=== PATIENT | male | born 1955 | race Caucasian/White ===

== ENCOUNTER 2017-11-27 05:42 | Emergency (ER) | payer BC ==
[~2017-11-27] VITALS: Ht 185.4 cm; Wt 94.3 kg
[~2017-11-27 05:42] MED LIST: ACID REDUCER 1150 MG PO; KETO10 PO; Robaxin500 MG PO; Ultram50 MG PO
[2017-11-27] MEDS ORDERED: LISI20 PO (06:00)
[2017-11-27] MEDS ORDERED: PANT40 PO (06:01)
[2017-11-27] MEDS ORDERED: AZIT250 PO (06:02)
[2017-11-27 07:02] LABS: BASOPHILS ABSOLUTE AUTO 0.09 K/mm3 (0.00-0.23); BASOPHILS PERCENT AUTO 1 % (0-2); EOSINOPHILS ABSOLUTE AUTO 0.12 K/mm3 (0.00-0.68); EOSINOPHILS PERCENT AUTO 1 % (0-6); Hematocrit 45.6 % (37.0-53.0); IMMATURE GRAN ABSOLUTE AUTO 0.03 K/mm3 (0.00-0.10); IMMATURE GRAN PERCENT AUTO 0 % (0-1); LYMPHOCYTES ABSOLUTE AUTO 1.06 K/mm3 (0.84-5.20); LYMPHOCYTES PERCENT AUTO 11 % (21-46); MONOCYTES ABSOLUTE AUTO 0.78 K/mm3 (0.16-1.47); MONOCYTES PERCENT AUTO 8 % (4-13); Mean Corpuscular HGB 31.8 pg (26.0-34.0); Mean Corpuscular HGB Conc 35.1 g/dL (31.5-36.5); Mean Corpuscular Volume 91 fL (80-100); Mean Platelet Volume 10.2 fL (9.1-12.4); NEUTROPHILS ABSOLUTE AUTO 7.83 K/mm3 (1.96-9.15); NEUTROPHILS PERCENT AUTO 79 % (41-73); Platelet Count 262 K/mm3 (150-400); RDW Coefficient Variation 12.7 % (11.7-14.2); RDW Standard Deviation 42.1 fL (35.1-46.3); Red Blood Cell Count 5.03 M/mm3 (4.30-5.90); White Blood Cell Count 9.91 K/mm3 (4.00-11.30)
[2017-11-27 07:14] LABS: Alanine Aminotransfer (ALT/SGP 20 U/L (12-78); Albumin, Blood 3.5 g/dL (3.4-5.0); Albumin/Globulin Ratio 0.7 (0.8-1.8); Alk Phos 96 U/L (50-136); Anion Gap 8 mmol/L (6-16); Aspartate Aminotrans (AST/SGOT 15 U/L (12-37); Blood Urea Nitrogen 13 mg/dL (8-24); Bun/Creatinine Ratio 12.4 (12.0-20.0); CO2, Blood 29 mmol/L (21-32); Calcium, Blood 8.8 mg/dL (8.5-10.1); Chloride, Blood 95 mmol/L (98-108); Creatinine, Blood 1.05 mg/dL (0.60-1.20); Globulin, Blood 4.7 g/dL (2.2-4.0); Glomerular Filtration Rate >60 (60-); Glucose, Blood 245 mg/dL (70-99); Potassium, Blood 4.4 mmol/L (3.5-5.5); Sodium, Blood 132 mmol/L (136-145); Total Protein, Blood 8.2 g/dL (6.4-8.2)
[2017-11-27] MEDS ORDERED: CIPR500 PO (08:31)
[2017-11-27] MEDS ORDERED: Flagyl500 MG PO (08:31)
== END 2017-11-27 09:05 | disposition home or self-care (01) ==
LOC: ER 05:42
PROVIDERS: Emergency Medicine
DX: K57.30 Diverticulosis of large intestine without perforation or abscess without bleeding (principal); J40 Bronchitis, not specified as acute or chronic; R73.9 Hyperglycemia, unspecified; F17.200 Nicotine dependence, unspecified, uncomplicated; Z79.899 Other long term (current) drug therapy
CPT/HCPCS: 71046; 74176; 80053; 83036; 83690; 85025; 96360; 99284-25; J7120

== ENCOUNTER 2018-01-25 07:57 | Emergency (ER) | payer OTHER, BC ==
[~2018-01-25] VITALS: Ht 185.4 cm; Wt 92.5 kg
[~2018-01-25 07:57] MED LIST changes: +AZIT250 PO; +CIPR500 PO; +Flagyl500 MG PO; +LISI20 PO; +PANT40 PO
[2018-01-25] MEDS ORDERED: METF500C PO (08:49)
[2018-01-25] MEDS ORDERED: Valium5 MG PO (10:24)
[2018-01-25] MEDS ORDERED: Norco 10-325 T1 EACH PO (10:24)
[2018-01-25] MEDS ORDERED: Prednisone20 MG PO (10:24)
== END 2018-01-25 10:57 | disposition home or self-care (01) ==
LOC: ER 07:57
DX: S39.012A Strain of muscle, fascia and tendon of lower back, initial encounter (principal); F17.200 Nicotine dependence, unspecified, uncomplicated; Z79.899 Other long term (current) drug therapy; Z79.84 Long term (current) use of oral hypoglycemic drugs; X50.1XXA Overexertion from prolonged static or awkward postures, initial encounter; Y99.0 Civilian activity done for income or pay
CPT/HCPCS: 72100; 96372; 99283-25; J2550; J3010

== ENCOUNTER 2018-09-13 07:31 | Day surgery (SDC) | payer BC ==
[~2018-09-13] VITALS: Ht 182.9 cm; Wt 199.8 kg
[~2018-09-13 07:31] MED LIST changes: +METF500C PO; +Norco 10-325 T1 EACH PO; +Prednisone20 MG PO; +Valium5 MG PO
--- NOTE | 2018-09-13 07:49 | NUR ---
Ambulatory in Day SurgeryPatient states colon prep results clear. History, Chart, Medications and Allergies reviewed before start of procedure.Lungs clear T/O to Auscultation. Patient confirms NPO status and agrees with scheduled surgery. Patient States Post-Procedure ride home has been arranged.
--- NOTE | 2018-09-13 08:16 | NUR ---
09/13/18 0816 Suha Huerta PATIENT DETERMINED TO BE ASA APPROPRIATE FOR PROPOFOL SEDATION PRIOR TO START OF PROCEDURE BY DR. BATRES. 3-LEAD EKG REVIEWED WITH PHYSICIAN PRIOR TO START OF PROCEDURE. PATIENT CONFIRMS NPO STATUS AND AGREES WITH SCHEDULED PROCEDURE. History, Chart, Medications and Allergies reviewed before start of procedure. MONITOR INTACT WITH CONTINUOUS PULSE OXIMETRY AND INTERMITTENT BP. O2 VIA N/C INTACT THROUGHOUT SEDATION/PROCEDURE, 3L NC.
--- NOTE | 2018-09-13 09:05 | NUR ---
Patient up to Ambulate independently. Gait steady. Discharge instructions reviewed with patient. Patient verbalizes understanding. Copy given to patient to take home. Patient States Post-Procedure ride home has been arranged. Discharged via wheelchair to private car for ride home.
== END 2018-09-13 22:36 | disposition home or self-care (01) ==
LOC: ORSCMMR 07:31 → ORD 08:30 → ORSCMMR 22:36
PROVIDERS: Internal Medicine Gastroenterology
PROC: 0DJD8ZZ Inspection of Lower Intestinal Tract, Via Natural or Artificial Opening Endoscopic (ICD-10-PCS; principal; 2018-09-13 08:30)
DX: Z12.11 Encounter for screening for malignant neoplasm of colon (principal); K57.30 Diverticulosis of large intestine without perforation or abscess without bleeding; I10 Essential (primary) hypertension; E11.9 Type 2 diabetes mellitus without complications; Z79.84 Long term (current) use of oral hypoglycemic drugs; Z79.899 Other long term (current) drug therapy; F17.210 Nicotine dependence, cigarettes, uncomplicated
CPT/HCPCS: 82947; J2704; J7120

== ENCOUNTER → 2019-04-12 | Outpatient (CLI) | payer BC ==
[2019-04-12 08:02] LABS: BASOPHILS ABSOLUTE AUTO 0.07 K/mm3 (0.00-0.23); BASOPHILS PERCENT AUTO 1 % (0-2); EOSINOPHILS ABSOLUTE AUTO 0.04 K/mm3 (0.00-0.68); EOSINOPHILS PERCENT AUTO 0 % (0-6); Hematocrit 47.4 % (37.0-53.0); Hemoglobin 16.9 g/dL (13.5-17.5); IMMATURE GRAN ABSOLUTE AUTO 0.03 K/mm3 (0.00-0.10); IMMATURE GRAN PERCENT AUTO 0 % (0-1); LYMPHOCYTES ABSOLUTE AUTO 1.16 K/mm3 (0.84-5.20); LYMPHOCYTES PERCENT AUTO 12 % (21-46); MONOCYTES ABSOLUTE AUTO 0.95 K/mm3 (0.16-1.47); MONOCYTES PERCENT AUTO 10 % (4-13); Mean Corpuscular HGB 33.6 pg (26.0-34.0); Mean Corpuscular HGB Conc 35.7 g/dL (31.5-36.5); Mean Corpuscular Volume 94 fL (80-100); Mean Platelet Volume 10.4 fL (9.1-12.4); NEUTROPHILS ABSOLUTE AUTO 7.48 K/mm3 (1.96-9.15); NEUTROPHILS PERCENT AUTO 77 % (41-73); Platelet Count 205 K/mm3 (150-400); RDW Coefficient Variation 12.7 % (11.7-14.2); RDW Standard Deviation 43.8 fL (35.1-46.3); Red Blood Cell Count 5.03 M/mm3 (4.30-5.90); White Blood Cell Count 9.73 K/mm3 (4.00-11.30)
[2019-04-12 08:33] LABS: Alanine Aminotransfer (ALT/SGP 14 U/L (12-78); Albumin, Blood 3.9 g/dL (3.4-5.0); Albumin/Globulin Ratio 0.9 (0.8-1.8); Alk Phos 77 U/L (40-126); Anion Gap 9 mmol/L (6-16); Aspartate Aminotrans (AST/SGOT 16 U/L (12-37); Bilirubin, Total 0.8 mg/dL (0.1-1.0); Blood Urea Nitrogen 13 mg/dL (8-24); CO2, Blood 28 mmol/L (21-32); Calcium, Blood 9.1 mg/dL (8.5-10.1); Chloride, Blood 98 mmol/L (98-108); Creatinine, Blood 1.08 mg/dL (0.60-1.20); Globulin, Blood 4.2 g/dL (2.2-4.0); Glomerular Filtration Rate >60 (60-); Glucose, Blood 148 mg/dL (70-99); Potassium, Blood 4.4 mmol/L (3.5-5.5); Sodium, Blood 135 mmol/L (136-145); Total Protein, Blood 8.1 g/dL (6.4-8.2)
== END | disposition home or self-care (01) ==
LOC: LAB SHORT 07:55 → LAB EV 07:55
PROVIDERS: Physician Assistant
DX: R10.32 Left lower quadrant pain (principal)
CPT/HCPCS: 80053; 83690; 85025

== ENCOUNTER 2019-12-22 16:09 | Inpatient (IN) | payer BC ==
[~2019-12-22] VITALS: Ht 185.4 cm; Wt 88.8 kg
[~2019-12-22 16:09] MED LIST changes: +Aspir 8181 MG PO; +TRAM50 PO
[2019-12-28 05:08] LABS: BASOPHILS ABSOLUTE AUTO 0.04 K/mm3 (0.00-0.23); BASOPHILS PERCENT AUTO 0 % (0-2); EOSINOPHILS ABSOLUTE AUTO 0.04 K/mm3 (0.00-0.68); EOSINOPHILS PERCENT AUTO 0 % (0-6); Hemoglobin 15.5 g/dL (13.5-17.5); IMMATURE GRAN ABSOLUTE AUTO 0.02 K/mm3 (0.00-0.10); IMMATURE GRAN PERCENT AUTO 0 % (0-1); LYMPHOCYTES ABSOLUTE AUTO 1.45 K/mm3 (0.84-5.20); LYMPHOCYTES PERCENT AUTO 14 % (21-46); MONOCYTES PERCENT AUTO 9 % (4-13); Mean Corpuscular HGB 33.2 pg (26.0-34.0); Mean Corpuscular HGB Conc 34.4 g/dL (31.5-36.5); Mean Corpuscular Volume 96 fL (80-100); Mean Platelet Volume 10.1 fL (9.1-12.4); NEUTROPHILS ABSOLUTE AUTO 8.06 K/mm3 (1.96-9.15); NEUTROPHILS PERCENT AUTO 76 % (41-73); Platelet Count 196 K/mm3 (150-400); RDW Coefficient Variation 13.2 % (11.7-14.2); RDW Standard Deviation 46.9 fL (35.1-46.3); Red Blood Cell Count 4.67 M/mm3 (4.30-5.90); White Blood Cell Count 10.61 K/mm3 (4.00-11.30)
[2019-12-28 05:28] LABS: Anion Gap 3 mmol/L (6-16); Blood Urea Nitrogen 11 mg/dL (8-24); Bun/Creatinine Ratio 10.5 (12.0-20.0); CO2, Blood 31 mmol/L (21-32); Calcium, Blood 8.1 mg/dL (8.5-10.1); Chloride, Blood 103 mmol/L (98-108); Creatinine, Blood 1.05 mg/dL (0.60-1.20); Glomerular Filtration Rate >60 (60-); Glucose, Blood 132 mg/dL (70-99); Potassium, Blood 4.3 mmol/L (3.5-5.5); Sodium, Blood 137 mmol/L (136-145)
[2020-01-01] MEDS ORDERED: Norco 5-325 Ta1 EACH PO (09:56)
== END 2020-01-01 10:20 | disposition home or self-care (01) | DRG 331 ==
LOC: SURS 12-27 06:02 → PRE IP 12-27 07:30 → SURS 12-27 12:01
PROVIDERS: ADMIT Surgery
PROC: 0DBN0ZZ Excision of Sigmoid Colon, Open Approach (ICD-10-PCS; principal; 2019-12-28)
DX: K57.32 Diverticulitis of large intestine without perforation or abscess without bleeding (principal); E11.9 Type 2 diabetes mellitus without complications; I10 Essential (primary) hypertension; F17.210 Nicotine dependence, cigarettes, uncomplicated; K21.9 Gastro-esophageal reflux disease without esophagitis
CPT/HCPCS: 36415; 80048; 82947; 85025; 88307; A9270-GY; J0295; J1100; J1650; J1885; J2250; J2405; J2704; J2765; J3010; J7120; V2790

== ENCOUNTER 2020-01-06 14:31 | Inpatient (IN) | payer BC ==
[~2020-01-06] VITALS: Ht 185.4 cm; Wt 88.5 kg
[~2020-01-06 14:31] MED LIST changes: +Norco 5-325 Ta1 EACH PO
[2020-01-06 14:58] LABS: BASOPHILS ABSOLUTE AUTO 0.02 K/mm3 (0.00-0.23); BASOPHILS PERCENT AUTO 0 % (0-2); EOSINOPHILS ABSOLUTE AUTO 0.15 K/mm3 (0.00-0.68); EOSINOPHILS PERCENT AUTO 2 % (0-6); Hematocrit 46.9 % (37.0-53.0); Hemoglobin 15.8 g/dL (13.5-17.5); IMMATURE GRAN ABSOLUTE AUTO 0.02 K/mm3 (0.00-0.10); IMMATURE GRAN PERCENT AUTO 0 % (0-1); LYMPHOCYTES ABSOLUTE AUTO 0.92 K/mm3 (0.84-5.20); LYMPHOCYTES PERCENT AUTO 15 % (21-46); MONOCYTES ABSOLUTE AUTO 0.25 K/mm3 (0.16-1.47); MONOCYTES PERCENT AUTO 4 % (4-13); Mean Corpuscular HGB 32.8 pg (26.0-34.0); Mean Corpuscular HGB Conc 33.7 g/dL (31.5-36.5); Mean Corpuscular Volume 97 fL (80-100); Mean Platelet Volume 9.9 fL (9.1-12.4); NEUTROPHILS ABSOLUTE AUTO 4.94 K/mm3 (1.96-9.15); NEUTROPHILS PERCENT AUTO 78 % (41-73); Platelet Count 395 K/mm3 (150-400); RDW Coefficient Variation 13.2 % (11.7-14.2); RDW Standard Deviation 47.1 fL (35.1-46.3); Red Blood Cell Count 4.82 M/mm3 (4.30-5.90)
[2020-01-06 15:15] LABS: Alanine Aminotransfer (ALT/SGP 47 U/L (12-78); Albumin, Blood 3.7 g/dL (3.4-5.0); Albumin/Globulin Ratio 0.9 (0.8-1.8); Alk Phos 70 U/L (50-136); Anion Gap 6 mmol/L (6-16); Aspartate Aminotrans (AST/SGOT 16 U/L (12-37); Bilirubin, Total 0.4 mg/dL (0.1-1.0); Blood Urea Nitrogen 13 mg/dL (8-24); Bun/Creatinine Ratio 11.7 (12.0-20.0); CO2, Blood 31 mmol/L (21-32); Calcium, Blood 9.1 mg/dL (8.5-10.1); Chloride, Blood 101 mmol/L (98-108); Creatinine, Blood 1.11 mg/dL (0.60-1.20); Globulin, Blood 3.9 g/dL (2.2-4.0); Glomerular Filtration Rate >60 (60-); Glucose, Blood 121 mg/dL (70-99); Potassium, Blood 4.2 mmol/L (3.5-5.5); Sodium, Blood 138 mmol/L (136-145); Total Protein, Blood 7.6 g/dL (6.4-8.2)
[2020-01-06] MEDS ORDERED: TRAM50 PO (19:54)
--- NOTE | 2020-01-06 23:46 | NUR ---
ICU RECOVERY PT TO ICU [address] SCHERER AND TOBY MAKER @ 1636 FOR SURGICAL RECOVERY. PT ON RA, VSS, AROUSES TO VERBAL STIMULI, ORIENTED TO SELF AND FOLLOWING DIRECTIONS. PT MOVES ALL EXTREMETIES. REPORT FROM OR STS PT HAD A LOOP ILEOSTOMY WITH WASHOUT, EBL LESS THAN 100ml, PT RECEIVED 1200ml FLUIDS. PT O2 SATURATIONS DECREASED TO 89%, PLACED ON 15L PER NRB, PT STARTED TO BECOME MORE AROUSABLE AND ORIENTED TO SELF, EVENT, LOCATION, AND FOLLOWING DIRECTIONS. PT REPORTS 10/10 PAIN TO ILEOSTOMY SURGICAL SITE, MEDICATED WITH FENTANYL 50mcg x6 WITH SOME RELEIF, DENIES NAUSEA. PT ASKING QUESTION ABOUT HIS OSTOMY, REGARDING CARE OF SITE AND LENGTH OF TIME OSTOMY WILL BE NECESSARY. ASSURED PT THAT HE AND FAMILY WOULD BE EDUCATED REGARDING CARE PRIOR TO DISCHARGE, AND PROVIDED BREIF EXPLANATION OF SITE CARE AND USE OF OSTOMY BAG. WOUND VAC TO MID ABD, C/D/I. GYPSY TO LLQ WITH BLOODY DRAINAGE. TORRE IN PLACE AND DRAINING DARK YELLOW URINE. PT PLACED ON 4L PER NC @ 2311 AND REPORT CALLED TO RORY WHITT. PT TRANSFERED TO ROOM 209 @ 4266.
[2020-01-07] MEDS ORDERED: Norco 5-325 Ta1 EACH PO (00:13)
[2020-01-07 04:20] LABS: BASOPHILS ABSOLUTE AUTO 0.07 K/mm3 (0.00-0.23); BASOPHILS PERCENT AUTO 0 % (0-2); EOSINOPHILS PERCENT AUTO 0 % (0-6); Hematocrit 47.1 % (37.0-53.0); IMMATURE GRAN ABSOLUTE AUTO 0.08 K/mm3 (0.00-0.10); IMMATURE GRAN PERCENT AUTO 0 % (0-1); LYMPHOCYTES ABSOLUTE AUTO 0.52 K/mm3 (0.84-5.20); LYMPHOCYTES PERCENT AUTO 3 % (21-46); MONOCYTES ABSOLUTE AUTO 0.67 K/mm3 (0.16-1.47); MONOCYTES PERCENT AUTO 4 % (4-13); Mean Corpuscular HGB 33.1 pg (26.0-34.0); Mean Corpuscular Volume 98 fL (80-100); NEUTROPHILS ABSOLUTE AUTO 17.17 K/mm3 (1.96-9.15); NEUTROPHILS PERCENT AUTO 93 % (41-73); Platelet Count 323 K/mm3 (150-400); RDW Coefficient Variation 13.4 % (11.7-14.2); Red Blood Cell Count 4.83 M/mm3 (4.30-5.90); White Blood Cell Count 18.51 K/mm3 (4.00-11.30)
[2020-01-07 04:40] LABS: Anion Gap 6 mmol/L (6-16); Blood Urea Nitrogen 13 mg/dL (8-24); CO2, Blood 27 mmol/L (21-32); Chloride, Blood 102 mmol/L (98-108); Glomerular Filtration Rate >60 (60-); Glucose, Blood 226 mg/dL (70-99); Potassium, Blood 4.7 mmol/L (3.5-5.5); Sodium, Blood 135 mmol/L (136-145)
--- NOTE | 2020-01-07 05:07 | NUR ---
SHIFT SUMMARY POD#1 LOOP ILEOSTOMY WITH WASH OUT. AAOX4. DISCOMFORT DECREASED WITH 50mcg FENTANYL Q2H. NO NAUSEA/EMESIS. INCREASED DISCOMFORT THIS AM, NOTIFIED AND NEW ORDERS RECEIVED. ABD INCISION WITH NICHOLE DRESSING C/D/I. OSTOMY SECURE WITH SCANT SS DRAINAGE. GYPSY SECURE WITH 70cc SS DRAINAGE. PT RESTING IN SHORT NAPS. PT ORIENTED TO ROOM + DEMONSTRATED CALL LIGHT USE.
--- NOTE | 2020-01-07 10:15 | NUR ---
DR EDWARDS RECENTLY HERE TO SEE PT. DISCUSSED STARTING DILAUDID NOW. FAMILY HERE. DISCUSSED LOVENOX ORDER.
--- NOTE | 2020-01-07 10:36 | NUR ---
PT REPORTS THIS PAIN MEDICATION WORKING BETTER. FAMILY AGREES THAT PT APPEARS MORE COMFORTABLE.
--- NOTE | 2020-01-07 13:00 | NUR ---
PT REPORTS PAIN DOING MUCH BETTER. PT ENC TO BE REPOSITIONED/UP TO CHAIR. PT REPORTS MOVING IN BED BY SELF AND WISHES TO TAKE A NAP. PT HAS FLY FRAME TENDER BUTTON AND CALL LIGHT. FAMILY BEEN IN/OUT OF ROOM.
--- NOTE | 2020-01-07 16:01 | NUR ---
SHIFT SUMMARY PT HAD DIFFICULTY EARLY THIS AM WITH PAIN CONTROL. PT PLACED ON DILAUDID CEMENT RAILROAD CAR LOADER WHICH PT REPORTS WORKING BETTER FOR HIM. PT UP TO CHAIR THIS AFTERNOON. PT BEEN ASSISTED WITH ADL'S PRN. FAMILY IN/OUT OF ROOM.
--- NOTE | 2020-01-08 04:43 | NUR ---
SHIFT SUMMARY POD#2. AAOX4. DISCOMFORT CONTROLLED WITH DILAUDID BACK HOE MACHINE OPERATOR. NO NAUSEA/EMESIS. NICHOLE DRESSING TO ABD C/D/I. GYPSY SECURE WITH 140cc SS OUT. OSTOMY WITH 200cc CLEAR/PINK OUT. PT RESTED WELL T/O NIGHT. PT RESTING AT THIS TIME WITH CALL LIGHT IN REACH.
[2020-01-08 04:50] LABS: BASOPHILS ABSOLUTE AUTO 0.04 K/mm3 (0.00-0.23); BASOPHILS PERCENT AUTO 0 % (0-2); EOSINOPHILS ABSOLUTE AUTO 0.33 K/mm3 (0.00-0.68); EOSINOPHILS PERCENT AUTO 3 % (0-6); Hematocrit 43.7 % (37.0-53.0); Hemoglobin 14.2 g/dL (13.5-17.5); IMMATURE GRAN ABSOLUTE AUTO 0.05 K/mm3 (0.00-0.10); IMMATURE GRAN PERCENT AUTO 0 % (0-1); LYMPHOCYTES ABSOLUTE AUTO 0.79 K/mm3 (0.84-5.20); LYMPHOCYTES PERCENT AUTO 6 % (21-46); MONOCYTES ABSOLUTE AUTO 0.69 K/mm3 (0.16-1.47); MONOCYTES PERCENT AUTO 6 % (4-13); Mean Corpuscular HGB 32.2 pg (26.0-34.0); Mean Corpuscular HGB Conc 32.5 g/dL (31.5-36.5); Mean Corpuscular Volume 99 fL (80-100); NEUTROPHILS ABSOLUTE AUTO 10.62 K/mm3 (1.96-9.15); NEUTROPHILS PERCENT AUTO 85 % (41-73); Platelet Count 298 K/mm3 (150-400); RDW Coefficient Variation 13.3 % (11.7-14.2); RDW Standard Deviation 48.7 fL (35.1-46.3); Red Blood Cell Count 4.41 M/mm3 (4.30-5.90); White Blood Cell Count 12.52 K/mm3 (4.00-11.30)
[2020-01-08 05:09] LABS: Anion Gap 4 mmol/L (6-16); Blood Urea Nitrogen 12 mg/dL (8-24); Bun/Creatinine Ratio 13.3 (12.0-20.0); CO2, Blood 26 mmol/L (21-32); Calcium, Blood 8.9 mg/dL (8.5-10.1); Chloride, Blood 105 mmol/L (98-108); Creatinine, Blood 0.91 mg/dL (0.60-1.20); Glomerular Filtration Rate >60 (60-); Glucose, Blood 102 mg/dL (70-99); Magnesium, Blood 2.3 mg/dL (1.6-2.4); Phosphorus, Blood 2.9 mg/dL (2.5-4.9); Potassium, Blood 4.3 mmol/L (3.5-5.5); Sodium, Blood 135 mmol/L (136-145)
--- NOTE | 2020-01-08 08:17 | NUR ---
PT REPORTS TORDOL HELPING ALREADY.
--- NOTE | 2020-01-08 10:50 | NUR ---
PT REPORTS PAIN DOING MUCH BETTER, PT TORRE OUT. PT ASSISTED WITH WALK IN HALLWAY THEN BACK TO CHAIR. PT FAMILY IN ROOM BEFORE TAKING TORRE OUT. PT TOLERATED WELL.
--- NOTE | 2020-01-08 11:52 | NUR ---
DISCUSSED PT'S STATUS WITH DR EDWARDS. NO NEW ORDERS AT THIS TIME.
--- NOTE | 2020-01-08 15:34 | NUR ---
SHIFT SUMMARY PT BEEN ASSISTED WITH ADL'S PRN. PT BEEN MED PRN FOR PAIN. PT USING BATTERY CONTAINER INSPECTOR FOR PAIN. PT REPORTS PAIN MUCH BETTER AFTER HAVING TORDOL AND HAVING SO MUCH COME OUT OF GYPSY DRAIN. PT BEEN INSTRUCTED ON GYPSY DRAIN, EMPTYING AND SUCTION. PT BEEN UP TO CHAIR AND AMBULATED IN HALLWAY [facility] TODAY.
--- NOTE | 2020-01-08 15:47 | NUR ---
OTHER RN I.O. GIVEN REPORT AND IS ASSUMING CARE AT THIS TIME.
--- NOTE | 2020-01-08 19:38 | NUR ---
WILL BE DONE SOON.PATIENT STATED HE WILL TRY AGAIN TO VOID
--- NOTE | 2020-01-09 05:11 | NUR ---
POD#3 LOOP ILEOSTOMY WITH WASH OUT. AAOX4. DISCOMFORT CONTROLLED WITH DILAUDID SOLVENT PLANT TREATER + TORADOL IV Q6H. NO NAUSEA/EMESIS. ABD INCISION WITH NICHOLE C/D/I. GYPSY SECURE WITH LARGE AMOUNTS OF SS OUT. OSTOMY WITH MODERATE AMOUNT OF PINK OUT. GOOD INTAKE + URINE OUTPUT. IVF PER ORDERS. PT RESTED WELL T/O MOST OF NIGHT. CURRENTLY RESTING IN BED WITH CALL LIGHT IN REACH.
--- NOTE | 2020-01-09 13:04 | NUR ---
PAIN MANAGEMENT PT HAS BEEN USING DILAUDID CUSTOMER QUALITY SPECIALIST TO HELP MANAGE HIS PAIN. HE IS NOT HAVING EVEN PAIN MANAGEMENT, ESPECIALLY WHEN HE FALLS ASLEEP. PERCOCET STARTED TO HELP WITH PAIN MANAGEMENT.
--- NOTE | 2020-01-09 18:20 | NUR ---
SHIFT SUMMARY PT IS POD#3 FROM A ABD WASHOUT AND LOOP ILEOSTOMY. PT HAS BEEN A SBA WHEN AMBULATING, FAMILY HAS ASSISTED PT TO AMBULATE. PT IS USING THE WALKER FOR AMBULATION. PT'S ABD REMAINS DISTENDED WITH MINIMAL OSTOMY OUTPUT. PT REPORTS CRAMPING PAIN IN HIS ABD, ALTHOUGH FLATUS HAS NOT BEEN OBSERVED AT THIS TIME. GYPSY DRAIN REMAINS IN PLACE AND IS DRAINING LARGE AMOUNTS SEROSANGUINOUS DRAINAGE. PT IS NO LONGER USING HIS SPRING MAKER, HE IS TAKING PO PAIN MEDICATION AND TORADOL. PT WAS ADVANCED TO FULL LIQUID DIET TODAY; HE APPEARS TO BE TOLERATING THE DIET EXCEPT FOR SOME INCREASED CRAMPING. VSS. WILL MONITOR UNTIL REPORT TO ONCOMING RN.
--- NOTE | 2020-01-09 22:18 | NUR ---
PAIN/BRUISE: DISCUSSED BRUISING TO RIGHT ABD/ABOVE HR HIP AND PT REPORTS OF INC PAIN TO THIS AFTERNOON W/ONCALL SURGEON DR COATS. NO CHANGES SINCE BEGINNING OF SHIFT. NEW ORDER FOR ICE CHIPS AND SIPS OF WATER ONLY UNTIL DR EDWARDS ROUNDS.
[2020-01-10 05:36] LABS: BASOPHILS ABSOLUTE AUTO 0.03 K/mm3 (0.00-0.23); BASOPHILS PERCENT AUTO 0 % (0-2); EOSINOPHILS ABSOLUTE AUTO 0.32 K/mm3 (0.00-0.68); EOSINOPHILS PERCENT AUTO 4 % (0-6); Hematocrit 41.5 % (37.0-53.0); Hemoglobin 14.1 g/dL (13.5-17.5); IMMATURE GRAN ABSOLUTE AUTO 0.03 K/mm3 (0.00-0.10); IMMATURE GRAN PERCENT AUTO 0 % (0-1); LYMPHOCYTES ABSOLUTE AUTO 0.63 K/mm3 (0.84-5.20); LYMPHOCYTES PERCENT AUTO 9 % (21-46); MONOCYTES ABSOLUTE AUTO 0.63 K/mm3 (0.16-1.47); MONOCYTES PERCENT AUTO 9 % (4-13); Mean Corpuscular HGB 32.4 pg (26.0-34.0); Mean Corpuscular Volume 95 fL (80-100); Mean Platelet Volume 9.5 fL (9.1-12.4); NEUTROPHILS ABSOLUTE AUTO 5.74 K/mm3 (1.96-9.15); NEUTROPHILS PERCENT AUTO 78 % (41-73); Platelet Count 406 K/mm3 (150-400); RDW Standard Deviation 45.7 fL (35.1-46.3); Red Blood Cell Count 4.35 M/mm3 (4.30-5.90); White Blood Cell Count 7.38 K/mm3 (4.00-11.30)
[2020-01-10 06:02] LABS: Anion Gap 7 mmol/L (6-16); Blood Urea Nitrogen 10 mg/dL (8-24); Bun/Creatinine Ratio 10.6 (12.0-20.0); CO2, Blood 23 mmol/L (21-32); Calcium, Blood 8.3 mg/dL (8.5-10.1); Chloride, Blood 107 mmol/L (98-108); Creatinine, Blood 0.94 mg/dL (0.60-1.20); Glomerular Filtration Rate >60 (60-); Glucose, Blood 136 mg/dL (70-99); Magnesium, Blood 2.1 mg/dL (1.6-2.4); Phosphorus, Blood 3.6 mg/dL (2.5-4.9); Sodium, Blood 137 mmol/L (136-145)
--- NOTE | 2020-01-10 06:41 | NUR ---
POD 4 S/P COLECTOMY+ILEOSTOMY. PT VSS T/O NIGHT. NO DRNG NOTED TO DRESSING. GYPSY PUTTING OUT LARGE AMTS LIGHT SS DRNG; DRAINED APPX 650 THIS SHIFT. PT CONT TO C/O MID-RIGHT ABD PAIN. BRUISING TO RLQ/HIP AREA IS SOMEWHAT DARKER THIS AM, NO CHANGE IN SIZE, PT REP PAIN W/PALP WHILE LAYING FLAT, DENIES WHEN STANDING. ABD FIRM/MOD DISTENDED, BT ACTIVE, OSTOMY PUTTING OUT SMALL AMT LIQ STOOL, NO FLATUS. PT NPO X SIPS/CHIPS, DENIED N/V. PT AMB INDEP IN HALLS, MANUELA WELL. PT USING CALL LIGHT FOR ASSISTANCE, WILL CONT TO MONITOR UNTIL REP GIVEN TO ONCOMING RN.
--- NOTE | 2020-01-10 11:29 | NUR ---
Pt. is sitting in a chair and her nurse in the room attending ton her needs ,offered prayers for the pt.
--- NOTE | 2020-01-10 12:05 | NUR ---
OSTOMY APPLIANCE CHANGED. PT EDUCATED ABOUT OSTOMY APPLIANCE IT WAS CHANGED. PT WAS UNABLE TO SEE THE SITE BUT WAS SHOWN PRODUCTS AND EDUCATED ABOUT THEM. GYPSY GUAZE SPONGES, AND MIDLINE DRESSING CHANGED.
--- NOTE | 2020-01-10 19:50 | NUR ---
SHIFT SUMMARY PAIN HAS BEEN MANAGED WITH RUBBER COMPOUNDER MIXER AND TORADOL. PT DID NOT FEEL THAT PERCOCET MANAGED HIS PAIN EFFECTIVELY. PT HAS BEEN AMBULATING IN THE HALWAY INDEPEDENTLY. PT HAS HAD FULL LIQUIDS TODAY, HIS PAIN INCREASES AFTER EATING. PT HAS HAD MINIMAL OSTOMY OUTPUT TODAY AND IS NOT PASSING FLATUS. OSTOMY APPLIANCE AND MIDLINE DRESSING WERE CHANGED TODAY, PT TOLERATED WELL. PT HAS BEEN AMBULATING IN THE HALWAYS WITH HIS . VSS. REPORT GIVEN TO MARIA DOLORES WHITT.
--- NOTE | 2020-01-11 04:46 | NUR ---
SHIFT SUMMARY POD5 PERFORATION, VSS, A/O X4. MODERATE DISTENTION IN ABD W/ TENDERNESS ON PALPATION, PAIN CONTROLLED PER EMAR & CONTINUOUS MINER OPERATOR HELPER. PT AMBULATES INDEPENDENTLY PERIODICALLY IN HALLWAY, USES CALL LIGHT APPROPRIATELY. MINIMAL OUTPUT IN OSTOMY W/ LIQUID STOOL PRESENT. SURGICAL DRESSINGS ARE CDI, GYPSY DRAINING LARGE AMOUNTS OF CLEAR YELLOW FLUID, 430 ML DURING SHIFT. WILL CONTINUE TO ASSESS DRAINAGE AND REPORT TO ONCOMING DAY RN.
--- NOTE | 2020-01-11 05:35 | NUR ---
POD 5 S/P EXP LAP/ILEOSTOMY. ABD FIRM, DOES APPEAR MORE BLOATED AND DISTENDED THIS AM. PT REMAINS PAINFUL; PAIN MGD W/TORADOL AND HYDROMETEOROLOGY TEACHER. PO INTAKE MINIMAL, SIPS OF WATER ONLY, PT HAD NO N/V. NO SIG DRNG FROM OSTOMY; SMALL AMT CLEAR LIQ BROWN DRNG, NO GAS. GYPSY CONT TO DRAIN LARGE AMTS CLEAR YELLOW FLUID. PT AMB INDEP IN HALLS. PT VERBALIZED FEELING DISCOURAGED R/T SLOW PROGRESSION. SUPPORT AND EDUCATION PRN T/O NIGHT.
--- NOTE | 2020-01-11 13:41 | NUR ---
Met pt. lying in bed resting , pt. reports to be doing fine encouraged pt. offered prayers.
--- NOTE | 2020-01-11 15:11 | NUR ---
1430 PT REPORTS ABD PAIN 03/03 AND THAT ABD SEEMS A LITTLE FIRMER NOW THAN THIS AM. PT BELCHING AT TIMES, STATES HE HAS NOT PASSED FLATUS. DR EDWARDS NOTIFIED OF PTS INCREASED PAIN
--- NOTE | 2020-01-11 15:33 | NUR ---
SPOKE WITH DR EDWARDS REGARDING PATIENTS PAIN AND THAT PT STATES HE IS NOT PASSSING FLATUS. NO NEW ORDERS
--- NOTE | 2020-01-11 17:36 | NUR ---
SUMMARY PATIENT REPORTS ABDOMINAL PAIN 6-03/03 ABD FIRM WITH HYPO BS. PT STATES HE DID "BURP" HIS OSTOMY X1. NICHOLE NOT MAINTAINING SUCTION AND DR EDWARDS AWARE OF THIS. GYPSY WITH SEROUS DRAINAGE. PT AMBULATED IN HALLWAYS X4. PT TAKING ONLY SMALL AMOUNTS OF CLEAR LIQUIDS
--- NOTE | 2020-01-12 04:58 | NUR ---
POD 6 S/P EXP LAP WITH LOOP ILEOSTOMY. PT WAS HAVING SOME PAIN CONTROL ISSUES AT BEGINNING OF SHIFT, DID IMPROVE WITH PO PERCOCET. PT RECEIVED ANOTHER DOSE OF PERCOCET AT 0035 AND SLEPT WELL. BUT WHEN PT WOKE UP THIS AM HE VOMITED A VERY SMALL AMT OF GREEN EMESIS. STATES NEVER FELT NAUSEOUS. PT THINKS THE VOMITING IS R/T THE PERCOCET. ABD SEEMS SLIGHTLY MORE DISTENDED AND FIRM. NO FLATUS IN OSTOMY AND ONLY SCANT AMTS OF SS FLUID. PT DOES STATE PAIN IS MUCH BETTER THIS MORNING AND DENIES NAUSEA. GYPSY PUT OUT 440ML THIS SHIFT OF YELLOW FLUID. PT ONLY TOOK SIPS OF WATER DURING NIGHT. CALL LIGHT IN REACH.
--- NOTE | 2020-01-12 15:22 | NUR ---
SHIFT SUMMARY PATIENT ALERT, ORIENTED, AND INDEPENDENT IN THE ROOM THIS SHIFT. PATIENT NAUSEOUS THROUGHOUT THIS SHIFT. PATIENT UP FOR A WALK TWO TIMES THIS SHIFT. PATIENT TO CT TO IDENTIFY CAUSE OF LACK OF OSTOMY OUTPUT. PATIENT HAS HAD FAMILY IN THE ROOM THROUGH MOST OF THIS SHIFT. PATIENT REMAINS ON COMMUNITY ADVOCATE PUMP. PATIENT STARTED ON CLINIMIX THIS SHIFT. PATIENT CURRENTLY SITTING UP IN BED.
--- NOTE | 2020-01-12 19:29 | NUR ---
SHIFT SUMMARY ASSUMED CARE OF PT AT APROX 1530. PT HAS DONE WELL, USING VAULT ATTENDANT FOR PAIN MGMT AND IV TORADOL ONCE BY THIS RN. PT REPORTS PAIN 5/[address] RESULTS OF [address] SCAN GIVEN BY JON WHITT. PT ENCOURAGED TO AMBULATE.
--- NOTE | 2020-01-13 03:19 | NUR ---
PASSING FLATUS OSTOMY IS NOW PRODUCING FLATUS. PT UP AMBULATING HALLS AGAIN.
[2020-01-13 04:33] LABS: BASOPHILS ABSOLUTE AUTO 0.03 K/mm3 (0.00-0.23); BASOPHILS PERCENT AUTO 0 % (0-2); EOSINOPHILS ABSOLUTE AUTO 0.18 K/mm3 (0.00-0.68); EOSINOPHILS PERCENT AUTO 2 % (0-6); Hematocrit 39.4 % (37.0-53.0); Hemoglobin 13.5 g/dL (13.5-17.5); IMMATURE GRAN ABSOLUTE AUTO 0.04 K/mm3 (0.00-0.10); IMMATURE GRAN PERCENT AUTO 0 % (0-1); LYMPHOCYTES ABSOLUTE AUTO 0.61 K/mm3 (0.84-5.20); LYMPHOCYTES PERCENT AUTO 5 % (21-46); MONOCYTES ABSOLUTE AUTO 1.15 K/mm3 (0.16-1.47); MONOCYTES PERCENT AUTO 10 % (4-13); Mean Corpuscular HGB 32.4 pg (26.0-34.0); Mean Corpuscular HGB Conc 34.3 g/dL (31.5-36.5); Mean Corpuscular Volume 95 fL (80-100); Mean Platelet Volume 9.7 fL (9.1-12.4); NEUTROPHILS ABSOLUTE AUTO 9.58 K/mm3 (1.96-9.15); NEUTROPHILS PERCENT AUTO 83 % (41-73); Platelet Count 451 K/mm3 (150-400); RDW Coefficient Variation 13.1 % (11.7-14.2); RDW Standard Deviation 45.4 fL (35.1-46.3); Red Blood Cell Count 4.17 M/mm3 (4.30-5.90); White Blood Cell Count 11.59 K/mm3 (4.00-11.30)
--- NOTE | 2020-01-13 04:43 | NUR ---
POD 7 EX LAP WITH ILEOSTOMY. PT CONT TO HAVE PAIN CONTROL ISSUES. DID ENCOURAGE MOBILITY. PT HAS BEEN AMBULATING IN HALLWAY, AND IS NOW PASSING FLATUS IN OSTOMY. PT NOW C/O CHRONIC BACK PAIN. CURRENTLY SITTING UP IN CHAIR. GYPSY ONLY PUT OUT 20ML YELLOW DRAINAGE. NO STOOL IN OSTOMY BUT [place] LIQ DRAINAGE PRESENT. CONT TO ENCOURAGE MOBILITY AND RECRUITER SPECIALIST USE NEEDED. CALL LIGHT IN REACH.
[2020-01-13 04:52] LABS: Anion Gap 6 mmol/L (6-16); Blood Urea Nitrogen 14 mg/dL (8-24); Bun/Creatinine Ratio 17.3 (12.0-20.0); CO2, Blood 27 mmol/L (21-32); Calcium, Blood 9.1 mg/dL (8.5-10.1); Chloride, Blood 100 mmol/L (98-108); Creatinine, Blood 0.81 mg/dL (0.60-1.20); Glomerular Filtration Rate >60 (60-); Glucose, Blood 157 mg/dL (70-99); Magnesium, Blood 1.8 mg/dL (1.6-2.4); Phosphorus, Blood 2.9 mg/dL (2.5-4.9); Potassium, Blood 4.1 mmol/L (3.5-5.5); Sodium, Blood 133 mmol/L (136-145)
--- NOTE | 2020-01-13 07:34 | NUR ---
pt watching tv no flatus in ostomy bag at this time pt stated he had some last night and he burped it around 0100 no stool caron has light yellow drainage
--- NOTE | 2020-01-13 10:59 | NUR ---
dr joya by to see pt
--- NOTE | 2020-01-13 18:43 | NUR ---
PO NORCO GIVEN FOR INC ABD CRAMPING INT PT CONT TO PASS FLATUS AND STOOL PT AMB IN HALLWAY WITH
--- NOTE | 2020-01-14 02:05 | NUR ---
PT ENCOURAGED TO CONT WEARING SCD'S AFTER RETURNING FROM BATHROOM. PT STATES HE CANT SLEEP WITH SCD'S ON AND IS REFUSING TO CONT WEARING THEM DESPITE THOROUGH EDUCATION ON BENIFIT/RISK. PT VERBALIZED UNDERSTANDING OF CONVERSATION/EDU. PT ALSO REFUSED INSULIN AND LOVENOX TONIGHT DESPITE BEING EDUCATED ON IMPORTANCE OF MEDICATIONS. PT VERBALIZED UNDERSTANDING- SEE EMAR NOTE. WILL CONT TO ENCOURAGE AMBULATION AND SCD'S.
--- NOTE | 2020-01-14 04:10 | NUR ---
SHIFT SUMMARY POD 8 EX. LAP WITH LOOP ILEOSTOMY. OSTOMY APPLIANCE C/D/I W/ 400ML OUT OF GREEN LIQUID STOOL PLUS FLATUS. GYPSY DRAIN APPEARS C/D/I WITH SMALL AMOUNT OF SEROUS FLUID. CLINIMIX INFUSING PER ORDERS, MANUELA SMALL AMOUNT OF CL DIET. REPORTS INCREASE IN APPETITE TONIGHT. AMB IN BATHROOM AND HALLWAY. PAIN CONTROLLED WITH HOT DOG VENDOR, 5MG PO NORCO, AND FLEXERIL. PT STATES "PAIN IS BETTER TONIGHT COMPARED TO THE LAST NIGHT." APPEARS TO HAVE SLEPT WELL T/O MOST OF SHIFT. PT CURRENTLY RESTING IN BED IN SEMIFOWLER WITH EYES CLOSED AND CALL LIGHT/PAIN BUTTON IN REACH.
[2020-01-14] MEDS ORDERED: CYCL10 PO (12:27)
[2020-01-14] MEDS ORDERED: Norco 5-325 Ta1 EACH PO (12:28)
--- NOTE | 2020-01-14 13:29 | NUR ---
Patient discharged home. IV out. Discharge instructions given, explained and signed. Patient to follow up with Dr. Hagen. Ostomy appliance changed with patient prior to discharge. Ostomy supplies already at patients house per patient's spouse. Prescriptions for [place] and Flexeril given to patient. Patient denied any questions or concerns at discharge.
== END 2020-01-14 13:10 | disposition home or self-care (01) | DRG 330 ==
LOC: ER 14:31 → SURS 20:38 → ICUW 22:41 → SURS 23:42
PROVIDERS: Student in an Organized Health Care Education/Training Program; ADMIT Surgery
PROC: 0D1B0Z4 Bypass Ileum to Cutaneous, Open Approach (ICD-10-PCS; principal; 2020-01-06 17:15)
DX: K91.89 Other postprocedural complications and disorders of digestive system (principal); K56.7 Ileus, unspecified; Z90.49 Acquired absence of other specified parts of digestive tract; F17.210 Nicotine dependence, cigarettes, uncomplicated; Z79.84 Long term (current) use of oral hypoglycemic drugs; E11.9 Type 2 diabetes mellitus without complications
CPT/HCPCS: 36415; 71260; 72192; 74177; 80048; 80053; 82947; 83605; 83735; 84100; 85025; 96361; 96365-59; 96375; 96376; 99285-25; A9270-GY; C9113; J1100; J1170; J1650; J1885; J2250; J2370; J2405; J2543; J2704; J3010; J7030; Q9967

== ENCOUNTER 2020-04-11 07:23 | Inpatient (IN) | payer BC ==
[~2020-04-11] VITALS: Ht 185.4 cm; Wt 87.8 kg
[~2020-04-11 07:23] MED LIST changes: +CYCL10 PO
[2020-04-11] MEDS ORDERED: TRAM50 PO (08:00)
== END 2020-04-12 16:33 | disposition home or self-care (01) | DRG 331 ==
LOC: SURS 07:23 → PRE IP 08:45 → SURS 12:11
PROVIDERS: ADMIT Surgery
PROC: 0DQB0ZZ Repair Ileum, Open Approach (ICD-10-PCS; principal; 2020-04-11 08:45)
DX: Z43.2 Encounter for attention to ileostomy (principal); I10 Essential (primary) hypertension; E78.5 Hyperlipidemia, unspecified; L40.9 Psoriasis, unspecified; K21.9 Gastro-esophageal reflux disease without esophagitis; E11.9 Type 2 diabetes mellitus without complications; G89.29 Other chronic pain; Z79.82 Long term (current) use of aspirin; Z79.84 Long term (current) use of oral hypoglycemic drugs
CPT/HCPCS: 82947; 94760; A9270-GY; J0295; J0690; J1100; J1170; J1650; J1885; J2250; J2405; J2704; J3010; J7030; J7120

== ENCOUNTER → 2021-02-06 | Outpatient (CLI) | payer BC | END | disposition home or self-care (01) | LOC: LAB SHORT 23:00 | DX: K57.90 Diverticulosis of intestine, part unspecified, without perforation or abscess without bleeding (principal); M14.88 Arthropathies in other specified diseases classified elsewhere, vertebrae | CPT/HCPCS: 83993 ==

== ENCOUNTER → 2021-04-01 | Outpatient (CLI) | payer BC ==
[2021-04-01 10:34] LABS: BASOPHILS ABSOLUTE AUTO 0.09 K/mm3 (0.00-0.23); BASOPHILS PERCENT AUTO 2 % (0-2); EOSINOPHILS ABSOLUTE AUTO 0.06 K/mm3 (0.00-0.68); EOSINOPHILS PERCENT AUTO 1 % (0-6); Hematocrit 45.1 % (37.0-53.0); Hemoglobin 16.4 g/dL (13.5-17.5); IMMATURE GRAN ABSOLUTE AUTO 0.02 K/mm3 (0.00-0.10); IMMATURE GRAN PERCENT AUTO 0 % (0-1); LYMPHOCYTES ABSOLUTE AUTO 1.25 K/mm3 (0.84-5.20); LYMPHOCYTES PERCENT AUTO 22 % (21-46); MONOCYTES ABSOLUTE AUTO 0.48 K/mm3 (0.16-1.47); MONOCYTES PERCENT AUTO 8 % (4-13); Mean Corpuscular HGB 32.9 pg (26.0-34.0); Mean Corpuscular HGB Conc 36.4 g/dL (31.5-36.5); Mean Corpuscular Volume 91 fL (80-100); Mean Platelet Volume 10.2 fL (9.1-12.4); NEUTROPHILS ABSOLUTE AUTO 3.84 K/mm3 (1.96-9.15); NEUTROPHILS PERCENT AUTO 67 % (41-73); Platelet Count 239 K/mm3 (150-400); RDW Coefficient Variation 12.3 % (11.7-14.2); RDW Standard Deviation 40.9 fL (35.1-46.3); Red Blood Cell Count 4.98 M/mm3 (4.30-5.90); White Blood Cell Count 5.74 K/mm3 (4.00-11.30)
[2021-04-01 11:36] LABS: Alanine Aminotransfer (ALT/SGP 35 U/L (12-78); Albumin, Blood 3.9 g/dL (3.4-5.0); Alk Phos 67 U/L (50-136); Anion Gap 7 mmol/L (6-16); Aspartate Aminotrans (AST/SGOT 18 U/L (12-37); Bilirubin, Total 0.6 mg/dL (0.1-1.0); Blood Urea Nitrogen 10 mg/dL (8-24); Bun/Creatinine Ratio 10.9 (12.0-20.0); CO2, Blood 27 mmol/L (21-32); Calcium, Blood 9.3 mg/dL (8.5-10.1); Chloride, Blood 101 mmol/L (98-108); Creatinine, Blood 0.91 mg/dL (0.60-1.20); Globulin, Blood 3.8 g/dL (2.2-4.0); Glomerular Filtration Rate >60 (60-); Glucose, Blood 113 mg/dL (70-99); Potassium, Blood 3.8 mmol/L (3.5-5.5); Sodium, Blood 135 mmol/L (136-145); Total Protein, Blood 7.7 g/dL (6.4-8.2)
[2021-04-01 11:37] LABS: Thyroid Stimulating Hormone 0.267 uIU/mL (0.360-4.800)
== END | disposition home or self-care (01) ==
LOC: LAB SHORT 09:27
PROVIDERS: Nurse Practitioner Family
DX: Z13.29 Encounter for screening for other suspected endocrine disorder (principal); Z12.5 Encounter for screening for malignant neoplasm of prostate; E11.9 Type 2 diabetes mellitus without complications; I10 Essential (primary) hypertension
CPT/HCPCS: 80053; 82043; 83036; 84443; 85025; G0103

== ENCOUNTER 2024-12-09 13:19 | Emergency (ER) | payer BC ==
[~2024-12-09] VITALS: Ht 188 cm; Wt 131.1 kg
[2024-12-09] MEDS ORDERED: LISINOPRIL-HCT1 EAC1 PO (13:41)
[2024-12-09] MEDS ORDERED: GLIP5 PO (13:42)
[2024-12-09] MEDS ORDERED: PRAVASTATIN SOD20 MG PO (13:43)
[2024-12-09] MEDS ORDERED: NS 500 ML IV SCH (13:45)
[2024-12-09 14:57] LABS: BASOPHILS ABSOLUTE AUTO 0.03 K/mm3 (0.00-0.23); BASOPHILS PERCENT AUTO 0 % (0-2); EOSINOPHILS ABSOLUTE AUTO 0.02 K/mm3 (0.00-0.68); EOSINOPHILS PERCENT AUTO 0 % (0-6); Hematocrit 40.9 % (37.0-53.0); Hemoglobin 15.2 g/dL (13.5-17.5); IMMATURE GRAN ABSOLUTE AUTO 0.02 K/mm3 (0.00-0.10); IMMATURE GRAN PERCENT AUTO 0 % (0-1); LYMPHOCYTES ABSOLUTE AUTO 0.18 K/mm3 (0.84-5.20); LYMPHOCYTES PERCENT AUTO 2 % (21-46); MONOCYTES ABSOLUTE AUTO 0.29 K/mm3 (0.16-1.47); MONOCYTES PERCENT AUTO 4 % (4-13); Mean Corpuscular HGB Conc 37.2 g/dL (31.5-36.5); Mean Corpuscular Volume 91 fL (80-100); NEUTROPHILS ABSOLUTE AUTO 7.68 K/mm3 (1.96-9.15); NEUTROPHILS PERCENT AUTO 94 % (41-73); NRBC ABSOLUTE 0.00 K/mm3 (0.00-0.02); NRBC Auto 0.0 /100 WBC (0.0-0.2); Platelet Count 139 K/mm3 (150-400); RDW Coefficient Variation 13.2 % (11.7-14.2); RDW Standard Deviation 43.9 fL (35.1-46.3)
[2024-12-09 15:07] LABS: Alanine Aminotransfer (ALT/SGP 155.0 U/L (12-78); Albumin, Blood 3.1 g/dL (3.4-5.0); Albumin/Globulin Ratio 0.8 (0.8-1.8); Anion Gap 11.0 mmol/L (3-11); Aspartate Aminotrans (AST/SGOT 88.0 U/L (12-37); Bilirubin, Total 8.6 mg/dL (0.1-1.0); Blood Urea Nitrogen 22.0 mg/dL (8-24); CO2, Blood 28.0 mmol/L (21-32); Calcium, Blood 8.5 mg/dL (8.5-10.1); Chloride, Blood 95.0 mmol/L (98-108); Creatinine, Blood 1.11 mg/dL (0.60-1.20); Globulin, Blood 3.7 g/dL (2.2-4.0); Glucose, Blood 155.0 mg/dL (70-99); Potassium, Blood 3.5 mmol/L (3.5-5.5); Sodium, Blood 130.0 mmol/L (136-145); Total Protein, Blood 6.8 g/dL (6.4-8.2)
[2024-12-09] MEDS ORDERED: Magnesium Sulf 2 GM/Water 50ML 50 ML IV ONE (16:25)
[2024-12-09 16:47] LABS: Bilirubin, Direct 6.0 mg/dL (0.0-0.3)
[2024-12-09] MEDS ORDERED: Ketorolac Tromethamine 30mg Vial IV ONE (17:20)
[2024-12-09] MEDS ORDERED: Piperacillin/Tazobactam Sod 3.375 GM in NS 100 ML IV ONE (17:25)
[2024-12-09] MEDS ORDERED: Metoclopramide HCl 5MG / ML 2ML Vial IV ONE (17:30)
[2024-12-09] MEDS ORDERED: NS 1,000 ML IV SCH (17:35)
[2024-12-09] MEDS ORDERED: DiphenhydrAMINE HCl 50 MG/ML 1ML Vial IV ONE (17:35)
[2024-12-09 20:00] VITALS: BP 118/87
== END 2024-12-09 20:10 | disposition short-term general hospital (02) ==
LOC: ER 13:19
PROVIDERS: Student in an Organized Health Care Education/Training Program
DX: K80.42 Calculus of bile duct with acute cholecystitis without obstruction (principal); E80.6 Other disorders of bilirubin metabolism; E87.1 Hypo-osmolality and hyponatremia; E86.0 Dehydration; E83.42 Hypomagnesemia; R74.01 Elevation of levels of liver transaminase levels; K21.9 Gastro-esophageal reflux disease without esophagitis; E78.00 Pure hypercholesterolemia, unspecified; E11.9 Type 2 diabetes mellitus without complications; I10 Essential (primary) hypertension; F17.200 Nicotine dependence, unspecified, uncomplicated; Z79.84 Long term (current) use of oral hypoglycemic drugs; Z79.82 Long term (current) use of aspirin; Z79.899 Other long term (current) drug therapy
CPT/HCPCS: 74177; 76705; 80053; 82248; 83690; 83735; 83880; 84484; 85025; 93005; 93010; 96365-59; 96367; 96375; 99285-25; J1200; J1885; J2543; J2765; J3475; J7030; Q9967